=== PATIENT | female | born 1995 | race African-American/Black ===

== ENCOUNTER 2017-05-28 22:38 | Emergency (ER) | payer SELFPAY ==
[2017-05-29 00:42] VITALS: BP 123/82
== END 2017-05-29 01:18 | disposition left against medical advice (07) ==
LOC: ED 22:38
DX: H57.11 Ocular pain, right eye (principal); Z53.21 Procedure and treatment not carried out due to patient leaving prior to being seen by health care provider

== ENCOUNTER 2017-09-19 10:27 | Emergency (ER) | payer BC ==
[2017-09-19] MEDS ORDERED: NS 0.9% 1000 ML* 1,000 ML IV ONE (10:35)
--- NOTE | 2017-09-19 10:59 | RAD ---
INDICATION: 22-year-old with neurologic change. Code solorzano. COMPARISON: CT brain June 09, 2014 TECHNIQUE: Noncontrast axial source images were acquired from the skull base to the vertex. FINDINGS: Ventricles/sulci: The ventricles and cisterns are normal in size and configuration for age. Brain parenchyma: There is no focal parenchymal finding, evidence of intracranial mass, or intracranial mass effect. Intracranial hemorrhage:None. Extra-axial spaces: There are no abnormal extra axial fluid collections or evidence of extra-axial mass. Calvarium: There is no calvarial fracture or other calvarial abnormality. Scalp: There is no evidence of scalp or extracalvarial soft tissue abnormality. Paranasal sinuses/mastoid: The paranasal sinuses and mastoid air cells are clear. Other: None. IMPRESSION: NEGATIVE EXAMINATION Findings called to ED at 1054 hours
[2017-09-19 11:10] LABS: ABS Basophils 0.1 10^3/ul (0-0.2); ABS Eosinophils 0.1 10^3/ul (0-0.6); ABS Lymphocytes 1.9 10^3/ul (1.0-4.8); ABS Monocytes 0.4 10^3/ul (0-0.8); ABS Neutrophils 5.6 10^3/ul (1.5-7.7); ABS Nucleated RBC 0 10^3/ul; Eosinophil % 1.4 % (0-6); Hematocrit 40 % (35-47); Hemoglobin 13.3 g/dl (12.0-16.0); Lymphocyte % 23.8 % (25-47); Mean Corpuscular HGB Conc 34 g/dl (31-36); Mean Corpuscular Hemoglobin 29 pg (27-31); Mean Corpuscular Volume 87 fL (80-97); Mean Platelet Volume 8 um3 (7.4-10.4); Nucleated Red Blood Cells % 0.1; Platelet Count 322 10^3/ul (150-450); Red Blood Count 4.55 10^6/ul (4.0-5.4); Red Cell Distribution Width 13 % (10.5-15); White Blood Count 8.1 10^3/ul (3.5-10.8)
[2017-09-19] MEDS ORDERED: Metoclopramide IV* 5 MG/ML 2 ML VIAL IV ONE (11:14)
[2017-09-19] MEDS ORDERED: diPHENhydraMINE IV* 50 MG/ML 1 ml VIAL (BENADRYL) IV ONE (11:14)
[2017-09-19] MEDS ORDERED: Ketorolac INJ* 30 MG/ML 1 ML VIAL IV ONE (11:14)
[2017-09-19 11:27] LABS: Urine Appearance Clear; Urine Blood Negative (Negative); Urine Color Yellow; Urine Ketones Negative (Negative); Urine Protein Negative (Negative); Urine Specific Gravity 1.008 (1.010-1.030); Urine Urobilinogen Negative (Negative)
[2017-09-19 11:33] LABS: INR 0.98 (0.77-1.02)
[2017-09-19 11:40] LABS: EGFR Non-African American 102.8 (>60)
--- NOTE | 2017-09-19 11:48 | RAD ---
INDICATION: Neurologic change. Code solorzano. COMPARISON: None TECHNIQUE: An AP portable view obtained at 1120 hours is submitted. FINDINGS: Bones/Soft Tissues: There are no acute bony findings. Cardiomediastinal: The cardiomediastinal silhouette is normal. Lungs: There are no infiltrates. Pleura: There are no pleural effusions. Other: The patient's bra was not removed. There is a linear density projecting over the right axilla. This may be related to the bra. There are nipple rings. There are overlying chest leads IMPRESSION: LUNGS CLEAR. METALLIC DENSITY SOFT TISSUE OPACITIES DESCRIBED
--- NOTE | 2017-09-19 13:11 | RAD ---
HISTORY: Weakness COMPARISONS: Head CT dated September 19, 2017 TECHNIQUE: The following sequences were obtained of the head: Sagittal T1-weighted images, axial T2-weighted images, axial FLAIR images, axial susceptibility weighted images, axial T1-weighted images. Additionally, axial diffusion-weighted images were obtained with calculated apparent diffusion coefficients. FINDINGS: HEMORRHAGE/INFARCT: There is no hemorrhage or acute infarct. MASSES/SHIFT: There is no mass or shift. EXTRA-AXIAL SPACES/MENINGES: There are no extra-axial fluid collections. SULCI AND VENTRICLES: The sulci and ventricles are normal in size and position for the patient's stated age. CEREBRUM: There are no focal parenchymal abnormalities. BRAINSTEM: There are no focal parenchymal abnormalities. CEREBELLUM: There are no focal parenchymal abnormalities. The cerebellar tonsils are normal in size and position. SELLA: The sella is normal. PINEAL: The pineal region is clear. CP ANGLE/TEMPORAL BONES: The labyrinthine structures are grossly normal. VESSELS: Normal flow-voids are noted within the visualized vertebral vasculature. DIFFUSION ABNORMALITIES: There are no diffusion abnormalities. PARANASAL SINUSES/MASTOIDS: The paranasal sinuses are clear. ORBITS: The orbits are unremarkable. BONES AND SOFT TISSUE: No bone or soft tissue abnormalities are noted. OTHER: None IMPRESSION: NORMAL BRAIN
[2017-09-19 14:21] VITALS: BP 112/74
--- NOTE | 2017-09-19 19:09 | CONS ---
CONSULTATION REPORT: DATE OF CONSULT: 09/19/17 REQUESTING PHYSICIAN: Dr. Haddad. REASON FOR CONSULT: Reji Lira. HISTORY OF PRESENT ILLNESS: Molly Blank is a 22-year-old woman with no significant past medical history, who presented to the emergency department just after 10 a.m. this morning with right facial and arm numbness, garbled speech, and some right arm weakness as well. She reports that she felt normal when she woke up this morning, but shortly after she arrived at work, just before 9 a.m., she began to notice some right facial numbness and tingling. This then involved her right arm and she noticed that her speech was not making sense. 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 EMS reported that she had reported to them right facial numbness and tingling and similar symptoms in her arm, but no clear weakness aside from some weak fiber picker on the right-hand side. I should also note that prior to the onset of her sensory symptoms, she reports that just prior to 9 o'clock, she had a change off to the right side of her vision where she describes seeing a bright white light, which partially obscured her vision off to the right-hand side and made things blurry. She had similar symptoms about 2 years ago with the same sensory symptoms on the right-hand side and blurry vision off to the right. She also reports a similar episode about a year prior to that. With one of these episodes, she did develop a headache. She otherwise denies a significant history of headaches , though says she does get headaches "once in a blue zeng." She denies any significant light or sound sensitivity or nausea or vomiting with those headaches. Her mother also gets rare migraine headaches, but there is no strong family history of frequent migraines. Upon my evaluation of the patient , after her CT scan, she was developing a left frontal headache, which she rated a 7/10. Her sensory symptoms and her visual symptoms were resolved. PAST MEDICAL HISTORY: Occasional headaches as described above. PAST SURGICAL HISTORY: None. MEDICATIONS: Oral contraceptive, which she has been taking for about 1 month. She does not know the name, but it is likely a combination estrogen and progesterone pill as she states she gets her period only once every 3 months now. She was previously treated with Depo shots. ALLERGIES: No known drug allergies. FAMILY HISTORY: Rare migraine headaches in her mother as described above. Her uncle who was also present in the room says he has been getting some sharp pains in his head, which he questions to be migraine as well. SOCIAL HISTORY: She has a 3-year-old son. She works as a blood bank laboratory technician. She drinks alcohol socially/occasionally. She denies tobacco use or drug use. REVIEW OF SYSTEMS: Aside from the HPI, a 15-point review of systems was negative. Specifically, she denied any recent stressors or significant changes in her life, which may have provoked this episode. PHYSICAL EXAM: Vital Signs: Temperature 97.9, blood pressure 137/91, heart rate 100, oxygen saturation 99% on room air. On general examination, she is a pleasant, well-developed woman, in no acute distress. Her heart is in regular rate and rhythm with no murmurs, rubs, or gallops. Lungs are clear to auscultation bilaterally. There are no carotid bruits. Her skin is intact. There is no joint swelling or erythema. There is no lower extremity edema. On neurologic examination, she is fully awake, alert, and oriented. She was able to read through the stroke cards without difficulty. On cranial nerve exam, pupils are equal, round, and reactive from 4 to 2 mm bilaterally. Versions are full without nystagmus. Mejias are full to confrontation. Facial sensation and musculature was full and symmetric to both light touch and pinprick. Hearing is intact to finger rub. The palate elevates symmetrically and tongue is midline. Shoulder shrug is full and symmetric. On motor examination, there is normal bulk and tone in the upper and lower extremities. Strength is full proximally and distally with no pronator drift. On sensory testing, sensation was diminished to pinprick in the right arm to approximately 80% of that of the left arm. Otherwise, sensation was intact. Reflexes were 2+ throughout with downgoing toes. [id number] was intact without ataxia. Her gait was narrow based and stable. DIAGNOSTIC STUDIES/LAB DATA: CBC and CMP were unremarkable. Urinalysis showed no evidence of infection. Her brain CT was personally reviewed and showed no evidence of any intracranial abnormality. IMPRESSION AND PLAN: Molly Blank is a 22-year-old woman with no significant past medical history aside from 2 episodes similar to that which she comes in for today. She has had the onset of blurring of her vision off to the right-hand side associated with a bright light as well as right facial and arm numbness and tingling as well as some weakness in the right arm. This was followed approximately an hour and a half later by a left-sided headache. This is most likely migraine with aura, but given the nature of her symptoms and the persistence of some sensory changes in her right upper extremity, I recommended an MRI of the brain without contrast. I spoke with Dr. Haddad about my impression and about the headache and we will treat her pain as migraine. She was educated on most likely diagnosis and the recommendation that she discontinue her oral contraceptive as the patients with migraine with aura are at a greater risk for stroke when on oral contraceptives than the general population. [facility] and was encouraged either return there to discuss alternate methods of control or go back to the [employer] [facility] up on [facility], which she saw for the of her son previously. If her MRI is normal, and her symptoms resolve, then she can be discharged from the emergency department. She was also encouraged to establish care with primary care physician as she does not currently have one. [id number]/[facility] #: [id number] LAURA
--- NOTE | 2017-09-20 12:54 | ED ---
Seferino Pride Jennifer, scribed for Braeden Haddad MD on 09/19/17 at 1054 . Neurological HPI - HPI Summary HPI Summary: The patient is a 22 year old female who was brought to the ED by ambulance when her vision became blurry on right side at 09:00 this morning. Soon after, she began to feel numbness on the right side of her face and numbness and tingling in her right arm. The patient had a similar episode two years ago at a different location but was not given a clear diagnosis of what happened. At the ED, her face is better, but her vision is still blurry and her arm is still numb and tingling. She denies any problems with walking. - History of Current Complaint Chief Complaint: EDNeurologicalDeficit Stated Complaint: POSSIBLE STROKE Time Seen by Provider: 09/19/17 10:35 Hx Obtained From: Patient Hx Last Menstrual Period: depo Onset/Duration: Sudden Onset - This morning at 09:00, Still Present Timing: Constant Onset Severity: Moderate Current Severity: Moderate Pain Intensity: 7 Character: Other: - Numbness, tingling, blurry vision Aggravating: Nothing Alleviating: Nothing Associated Signs and Symptoms: Positive: Visual Changes, Numbness - Allergy/Home Medications Allergies/Adverse Reactions: Allergies Allergy/AdvReac Type Severity Reaction Status Date / Time No Known Allergies Allergy Verified 06/27/16 17:25 Home Medications: Home Medications Levonorgestrel-Ethinyl Estradi [Camrese Lo] 1 tab PO DAILY 09/19/17 [History Confirmed 09/19/17] PMH/Surg Hx/FS Hx/Imm Hx Endocrine/Hematology History: Denies: Hx Diabetes, Hx Thyroid Disease Cardiovascular History: Denies: Hx Hypertension Respiratory History: Denies: Hx Asthma, Hx Chronic Obstructive Pulmonary Disease (COPD) GI History: Denies: Hx Ulcer Infectious Disease History: No Infectious Disease History: Denies: Hx Hepatitis, Hx Human Immunodeficiency Virus (HIV), History Other Infectious Disease, Traveled Outside the [place] in Last 30 Days - Family History Known Family History: Negative: Cardiac Disease, Hypertension, Diabetes, Blood Disorder - Social History Alcohol Use: None Substance Use Type: Reports: None Smoking Status (MU): Never Smoked Tobacco Review of Systems Positive: Blurred Vision Neurological: Other - Tingling Positive: Numbness All Other Systems Reviewed And Are Negative: Yes Physical Exam - Summary Physical Exam Summary: Appearance: The patient is well-nourished in no acute distress and in no acute pain. Skin: The skin is warm and dry and skin color reflects adequate perfusion. HEENT: ~The head is normocephalic and atraumatic. The pupils are equal and reactive. The conjunctivae are clear and without drainage. ~Nares are patent and without drainage. ~Mouth reveals moist mucous membranes and the throat is without erythema and exudate. ~The external ears are intact. The ear canals are patent and without drainage. The tympanic membranes are intact. Neck: the neck is supple with full range of motion and non-tender. There are no carotid bruits. ~There is no neck vein distension. Respiratory: Chest is non-tender. ~Lungs are clear to auscultation and breath sounds are symmetrical and equal. Cardiovascular: Heart is regular rate and rhythm. ~There is no murmur or rub auscultated. ~~There is no peripheral edema and pulses are symmetrical and equal. Abdomen: The abdomen is soft and non-tender. ~There are normal bowel sounds heard in all four quadrants and there is no organomegaly palpated. Musculoskeletal: There is no back tenderness noted. ~Extremities are non-tender with full range of motion. ~There is good capillary refill. ~There is no peripheral edema or calf tenderness elicited. Neurological: Patient is alert and oriented to person, place and time. ~The patient has symmetrical motor strength in all four extremities. ~Cranial nerves are grossly intact. Deep tendon reflexes are symmetrical and equal in all four extremities. The patient experiences subjectiveness numbness on the right side of the face and right arm. Psychiatric: The patient has an appropriate affect and does not exhibit any anxiety or depression. Triage Information Reviewed: Yes Vital Signs On Initial Exam: Initial Vitals Temp Pulse Resp BP Pulse Ox 97.9 F 100 16 137/91 99 09/19/17 10:45 09/19/17 10:45 09/19/17 10:45 09/19/17 10:45 09/19/17 10:45 Vital Signs Reviewed: Yes Diagnostics - Vital Signs Vital Signs Temp Pulse Resp BP Pulse Ox 09/19/17 10:45 97.9 F 100 16 137/91 99 - Laboratory Lab Results: Lab Results 09/19/17 09/19/17 09/19/17 Range/Units 10:59 10:59 10:59 WBC 8.1 (3.5-10.8) 10^3/ul RBC 4.55 (4.0-5.4) 10^6/ul Hgb 13.3 (12.0-16.0) g/dl Hct 40 (35-47) % MCV 87 (80-97) fL MCH 29 (27-31) pg MCHC 34 (31-36) g/dl RDW 13 (10.5-15) % Plt Count 322 (150-450) 10^3/ul MPV 8 (7.4-10.4) um3 Neut % (Auto) 68.7 (38-83) % Lymph % (Auto) 23.8 L (25-47) % Anderson % (Auto) 5.5 (1-9) % Eos % (Auto) 1.4 (0-6) % Baso % (Auto) 0.6 (0-2) % Absolute Neuts (auto) 5.6 (1.5-7.7) 10^3/ul Absolute Lymphs (auto) 1.9 (1.0-4.8) 10^3/ul Absolute Monos (auto) 0.4 (0-0.8) 10^3/ul Absolute Eos (auto) 0.1 (0-0.6) 10^3/ul Absolute Basos (auto) 0.1 (0-0.2) 10^3/ul Absolute Nucleated RBC 0 10^3/ul Nucleated RBC % 0.1 INR (Anticoag Therapy) 0.98 (0.77-1.02) APTT 27.4 (26.0-36.3) seconds Sodium 136 (133-145) mmol/L Potassium 3.9 (3.5-5.0) mmol/L Chloride 104 (101-111) mmol/L Carbon Dioxide 24 (22-32) mmol/L Anion Gap 8 (2-11) mmol/L BUN 10 (6-24) mg/dL Creatinine 0.70 (0.51-0.95) mg/dL Est GFR ( Amer) 132.2 (>60) Est GFR (Non-Af Amer) 102.8 (>60) BUN/Creatinine Ratio 14.3 (8-20) Glucose 85 (70-100) mg/dL Lactic Acid (0.5-2.0) mmol/L Calcium 10.0 (8.6-10.3) mg/dL Total Bilirubin 0.40 (0.2-1.0) mg/dL AST 18 (13-39) U/L ALT 11 (7-52) U/L Alkaline Phosphatase 54 (34-104) U/L Troponin I 0.01 (<0.04) ng/mL Total Protein 7.6 (6.4-8.9) g/dL Albumin 4.3 (3.2-5.2) g/dL Globulin 3.3 (2-4) g/dL Albumin/Globulin Ratio 1.3 (1-3) Triglycerides 58 mg/dL Cholesterol 249 mg/dL LDL Cholesterol 155 mg/dL HDL Cholesterol 82.3 mg/dL Beta HCG, Quant < 0.60 mIU/mL Urine Color Urine Appearance Urine pH (5-9) Ur Specific Milton (1.010-1.030) Urine Protein (Negative) Urine Ketones (Negative) Urine Blood (Negative) Urine Nitrate (Negative) Urine Bilirubin (Negative) Urine Urobilinogen (Negative) Ur Leukocyte Esterase (Negative) Urine Glucose (Negative) Blood Type Antibody Screen 09/19/17 09/19/17 09/19/17 Range/Units 10:59 10:59 11:11 WBC (3.5-10.8) 10^3/ul RBC (4.0-5.4) 10^6/ul Hgb (12.0-16.0) g/dl Hct (35-47) % MCV (80-97) fL MCH (27-31) pg MCHC (31-36) g/dl RDW (10.5-15) % Plt Count (150-450) 10^3/ul MPV (7.4-10.4) um3 Neut % (Auto) (38-83) % Lymph % (Auto) (25-47) % Anderson % (Auto) (1-9) % Eos % (Auto) (0-6) % Baso % (Auto) (0-2) % Absolute Neuts (auto) (1.5-7.7) 10^3/ul Absolute Lymphs (auto) (1.0-4.8) 10^3/ul Absolute Monos (auto) (0-0.8) 10^3/ul Absolute Eos (auto) (0-0.6) 10^3/ul Absolute Basos (auto) (0-0.2) 10^3/ul Absolute Nucleated RBC 10^3/ul Nucleated RBC % INR (Anticoag Therapy) (0.77-1.02) APTT (26.0-36.3) seconds Sodium (133-145) mmol/L Potassium (3.5-5.0) mmol/L Chloride (101-111) mmol/L Carbon Dioxide (22-32) mmol/L Anion Gap (2-11) mmol/L BUN (6-24) mg/dL Creatinine (0.51-0.95) mg/dL Est GFR ( Amer) (>60) Est GFR (Non-Af Amer) (>60) BUN/Creatinine Ratio (8-20) Glucose (70-100) mg/dL Lactic Acid 1.4 (0.5-2.0) mmol/L Calcium (8.6-10.3) mg/dL Total Bilirubin (0.2-1.0) mg/dL AST (13-39) U/L ALT (7-52) U/L Alkaline Phosphatase (34-104) U/L Troponin I (<0.04) ng/mL Total Protein (6.4-8.9) g/dL Albumin (3.2-5.2) g/dL Globulin (2-4) g/dL Albumin/Globulin Ratio (1-3) Triglycerides mg/dL Cholesterol mg/dL LDL Cholesterol mg/dL HDL Cholesterol mg/dL Beta HCG, Quant mIU/mL Urine Color Yellow Urine Appearance Clear Urine pH 6.0 (5-9) Ur Specific Milton 1.008 L (1.010-1.030) Urine Protein Negative (Negative) Urine Ketones Negative (Negative) Urine Blood Negative (Negative) Urine Nitrate Negative (Negative) Urine Bilirubin Negative (Negative) Urine Urobilinogen Negative (Negative) Ur Leukocyte Esterase Negative (Negative) Urine Glucose Negative (Negative) Blood Type O Positive Antibody Screen Negative Result Diagrams: 09/19/17 10:59 09/19/17 10:59 Lab Statement: Any lab studies that have been ordered have been reviewed, and results considered in the medical decision making process. - Radiology CXR Xray Interpretation: No Acute Changes - LUNGS CLEAR. METALLIC DENSITY SOFT TISSUE OPACITIES DESCRIBED. Dr. Haddad has reviewed this report. Radiology Interpretation Completed By: Radiologist - CT CT Brain CT Interpretation: No Acute Changes - Negative exam findings. Dr. Haddad has reviewed this report. CT Interpretation Completed By: Radiologist - EKG n Cardiac Rate: NL EKG Rhythm: Sinus Rhythm - [address] Segment: Normal - Additional Comments Diagnostic Additional Comments: Brain MRI taken at 11:14. Impression: NORMAL BRAIN. Dr. Haddad has reviewed this report. NIH Scale - NIH Scale Level of Consciousness: Alert/Keenly Responsive Ask Patient the Month and His/Her Age: Both Correct Ask Pt to Open/Close Eyes and [employer]/Release Non-Paretic Hand: Both Correctly Best Gaze (Only Horizontal Eye Movement): Normal Visual Field Testing: No Visual Loss Facial Paresis-Pt to Smile & Close Eyes or Grimace Symmetry: Normal/Symmetrical Motor Function - Right Arm: No Drift-Holds 10 Seconds Motor Function - Left Arm: No Drift-Holds 10 Seconds Motor Function - Right Leg: No Drift-Holds 10 Seconds Motor Function - Left Leg: No Drift-Holds 10 Seconds Limb Ataxia-Must be out of Proportion to Weakness Present: Absent Sensory (Use Pinprick to Test Arms/Legs/Trunk/Face): Pinprick Less on Affected Best Language (Describe Picture, Name Items): No Aphasia Dysarthria (Read Several Words): Normal Extinction and Inattention: No Abnormality Total Score: 1 Course/Dx - Course Course Of Treatment: Ms. Blank presented with neurological symptomatology without a MOHR. She had a vague history of a similar event without a MOHR and no history of MOHR's so a Code Balbuena was called. Subsequent to her CT, she did develop a MOHR and Dr. Chin felt that this was likely an atypical migraine. An MRI confirmed that there was no CVA and she was D/C'd in improved condition to F /U with her Dr. Chin. - Diagnoses Provider Diagnoses: Atypical migraine Discharge - Discharge Plan Condition: Stable Disposition: HOME Patient Education Materials: Migraine Headache (ED) Referrals: Bianca Chin MD [Medical Doctor] - 3 Days Additional Instructions: Follow up with Dr. Chin, neurology, in three days. Return to the emergency department for any new or worsening symptoms. The documentation as recorded by the scribe, Gentile,Donita accurately reflects the service I personally performed and the decisions made by me, Braeden Haddad MD.
== END 2017-09-19 14:21 | disposition home or self-care (01) ==
LOC: ED 10:27
DX: G43.909 Migraine, unspecified, not intractable, without status migrainosus (principal); H53.8 Other visual disturbances
CPT/HCPCS: 36415; 70450; 70551; 71045; 80053; 80061; 81003; 83605; 84484; 84702; 85025; 85610; 85730; 86850; 86900; 86901; 93005; 96374; 96375; 99283; J1200; J1885; J2765

== ENCOUNTER 2018-12-11 11:18 | Emergency (ER) | payer BC ==
[2018-12-11] MEDS ORDERED: Butalb/Acetamin/Caff TAB* 1 TAB PO ONE (11:26)
--- NOTE | 2018-12-11 11:30 | ED ---
Headache - HPI Summary HPI Summary: 23 year old F brought in by [facility] complains of headache since 10 :00 today. The patient rates the pain 7/10 in severity. Symptoms aggravated by nothing. Symptoms alleviated by nothing. Patient reports right eye blurriness. She reports right sided tongue numbness that has resolved. Patient denies fever , neck stiffness. Patient states that she gets this type of headache once a year. Patient denies alcohol, smoking. - History Of Current Complaint Stated Complaint: HEADACHE PER EMS Time Seen by Provider: 12/11/18 11:20 Hx Obtained From: Patient Hx Last Menstrual Period: depo Onset/Duration: Sudden Onset, Started hours ago - 1, Still Present Timing: Constant Aggravating Factor: Nothing Allevating Factors: Nothing Associated Signs And Symptoms: Negative - fever, neck stiffness, Other (Noted In Comments) - right eye blurriness - Allergies/Home Medications Allergies/Adverse Reactions: Allergies Allergy/AdvReac Type Severity Reaction Status Date / Time No Known Allergies Allergy Verified 12/11/18 11:26 PMH/Surg Hx/FS Hx/Imm Hx Previously Healthy: No Endocrine/Hematology History: Denies: Hx Diabetes, Hx Thyroid Disease Cardiovascular History: Denies: Hx Hypertension, Hx Pacemaker/ICD Respiratory History: Denies: Hx Asthma, Hx Chronic Obstructive Pulmonary Disease (COPD) GI History: Denies: Hx Ulcer Sensory History: Denies: Hx Hearing Aid Neurological History: Reports: Hx Headaches Psychiatric History: Denies: Hx Panic Disorder - Surgical History Surgery Procedure, Year, and Place: NONE Infectious Disease History: Denies: Hx Hepatitis, Hx Human Immunodeficiency Virus (HIV), History Other Infectious Disease - Family History Known Family History: Negative: Cardiac Disease, Hypertension, Diabetes, Blood Disorder - Social History Alcohol Use: None Hx Substance Use: No Substance Use Type: Reports: None Hx Tobacco Use: No Smoking Status (MU): Never Smoked Tobacco Review of Systems Negative: Fever Positive: Blurred Vision - right eye Neurological: Negative - neck stiffness, right sided tongue numbness All Other Systems Reviewed And Are Negative: Yes Physical Exam - Summary Physical Exam Summary: Appearance: Well appearing, no pain distress Skin: warm, dry, reflects adequate perfusion Head/face: normal Eyes: EOMI, CHINYERE ENT: normal Neck: supple, non-tender Respiratory: CTA, breath sounds present Cardiovascular: RRR, pulses symmetrical Abdomen: non-tender, soft Musculoskeletal: normal, strength/ROM intact Neuro: normal, sensory motor intact, A&Ox3 Triage Information Reviewed: Yes Vital Signs Reviewed: Yes Re-Evaluation - Re-Evaluation First Eval Re-Evaluation Time: 12:41 Change: Improved Comment: Patient reports feeling better and would like to go home Headache Course/Dx - Course Course Of Treatment: 23 year old F [place] [facility] [place] of migraine headache since 10:00 today. Patient reports right eye blurriness and denies fever, neck stiffness. Patient states that she gets this type of headache once a year. In ED course, patient was given Fiorocet after which patient reports feeling better. Patient refused IM injections, labs, scans. Patient will be discharged home with prescription for Fioricet and follow up from primary care provider in 3 days. Patient was instructed to return to ED for new or worsening symptoms. Patient understands and is agreeable to discharge plan. - Diagnoses Differential Diagnosis/HQI/PQRI: Migraine, Sinus Headache, Tension Headache Provider Diagnoses: Migraine Discharge - Sign-Out/Discharge Documenting (check all that apply): Patient Departure - Discharge Patient Received Moderate/Deep Sedation with Procedure: No - Discharge Plan Condition: Stable Disposition: HOME Prescriptions: Butalb/Acetamin/Caff TAB* [Fioricet TAB*] 1 tab PO Q6H PRN #12 tab MDD 3 PRN Reason: Pain Patient Education Materials: Migraine Headache (ED) Referrals: [facility] [[facility]] - 3 Days Additional Instructions: Arrange a primary care provider to have follow up appointment in 3 days. RETURN TO THE EMERGENCY DEPARTMENT FOR NEW OR WORSENING SYMPTOMS. - Billing Disposition and Condition Condition: STABLE Disposition: Home - Attestation Statements Document Initiated by Scarletibe: Yes Documenting Scribe: Renetta Hawk Provider For Whom Mu is Documenting (Include Credential): Maximo Montemayor MD Scribe Attestation: Renetta Pride, emmaed for Maximo Montemayor MD on 12/11/18 at 1258. Scribe Documentation Reviewed: Yes Provider Attestation: The documentation as recorded by the Renetta beckham accurately reflects the service I personally performed and the decisions made by me, Maximo Montemayor MD Status of Scribe Document: Viewed
[2018-12-11 13:07] VITALS: BP 124/84
== END 2018-12-11 13:05 | disposition home or self-care (01) ==
LOC: ED 11:18
DX: G43.909 Migraine, unspecified, not intractable, without status migrainosus (principal)
CPT/HCPCS: 99282; A9270-GY

== ENCOUNTER 2019-10-15 09:03 | Emergency (ER) | payer SELFPAY ==
--- OUTSIDE RECORDS SUMMARY | 2019-10-15 09:11 | XMS REPORT | Continuity of Care Document ---
:1995 External Reference #:[id number] Author Name Sonia Zuñiga MD (transmitted by agent of provider Dinah Nicole) Address [address], [place] [address] Care Team Providers Name Role Phone Sonia Zuñiga MD - Internal Medicine Care Team Information Poultry Trimmer Problems Description No Information Available Social History Type Date Description Comments Sex Unknown ETOH Use Rarely consumes alcohol Tobacco Use Start: Unknown Patient has never smoked Smoking Status Reviewed: 09/29/19 Patient has never smoked Exercise Type/Frequency Exercises regularly Allergies, Adverse Reactions, Alerts Description No Known Drug Allergies Medications Active Medications SIG Qnty Indications Ordering Provider Date Sumatriptan Succinate take one tablet 9tabs G43.109 Sonia Zuñiga MD 2018 by mouth at the 50mg Tablets start of the headache; may repeat the dose in 2 hours if needed Immunizations Description No Information Available Vital Signs Date Vital Result Comment 09/29/2019 8:04am Height 61 inches 5'1" Weight 145.00 lb Heart Rate 85 /min BP Systolic Sitting 118 mmHg BP Diastolic Sitting 72 mmHg BMI (Body Mass Index) 27.4 kg/m2 12/25/2018 11:18am Height 61 inches 5'1" Weight 144.00 lb Heart Rate 69 /min BP Systolic Sitting 109 mmHg BP Diastolic Sitting 76 mmHg Body Temperature 98.4 F O2 % BldC Oximetry 97 % BMI (Body Mass Index) 27.2 kg/m2 Results Description No Information Available Procedures Description No Information Available Medical Devices Description No Information Available Encounters Description No Information Available Assessments Date Code Description Provider 09/29/2019 K59.00 Constipation, unspecified Sonia Zuñiga MD 09/29/2019 N92.6 Irregular menstruation, unspecified Sonia Zuñiga MD Plan of Treatment Future Appointment(s):12/08/2019 1:20 pm - Sonia Zuñiga MD at [facility] Internal Medicine - [facility]/06/2020 - Sonia Zuñiga MDK59.00 Constipation, unspecifiedComments:Colace 100mg twice a day for a week or till you have a good BMAfter that continue to take it dailyFollow up:F/U 2-3 months for physical Call in 4 weeks if not [id number] Irregular menstruation, unspecified Functional Status Description No Information Available Mental Status Description No Information Available Referrals Description No Information Available
[2019-10-15 09:15] VITALS: BP 116/74
--- NOTE | 2019-10-15 09:28 | UC ---
UC General HPI - HPI Summary HPI Summary: Patient states last night she was having shakes and freezing/chills and subjective fever. She has a runny nose. +bodyaches - hurts all over. She went in to work today and was sent home. No N/V/D. Has issues with constipation - started stool softener but last BM was about 2 weeks ago. Meds: Reviewed - History of Current Complaint Chief Complaint: UCRespiratory Stated Complaint: FLU LIKE SYMPTOMS Time Seen by Provider: 10/15/19 09:09 Hx Last Menstrual Period: 09/24/19 Pain Intensity: 5 - Allergy/Home Medications Allergies/Adverse Reactions: Allergies Allergy/AdvReac Type Severity Reaction Status Date / Time No Known Allergies Allergy Verified 10/15/19 09:15 Home Medications: Home Medications NK [No Home Medications Reported] 10/15/19 [History Confirmed 10/15/19] PMH/Surg Hx/FS Hx/Imm Hx Previously Healthy: Yes - Surgical History Surgical History: Yes Surgery Procedure, Year, and Place: NONE - Family History Known Family History: Negative: Cardiac Disease, Hypertension, Diabetes, Blood Disorder - Social History Alcohol Use: Occasionally Substance Use Type: None Smoking Status (MU): Never Smoked Tobacco - Immunization History Most Recent Influenza Vaccination: 07/02/13 Most Recent Tetanus Shot: needs Most Recent Pneumonia Vaccination: na Review of Systems All Other Systems Reviewed And Are Negative: Yes Constitutional: Positive: Fever, Chills ENT: Positive: Nasal Discharge Physical Exam Triage Information Reviewed: Yes Appearance: Well-Appearing Vital Signs: Initial Vital Signs Temp 100.5 F 10/15/19 09:11 Pulse 93 10/15/19 09:11 Resp 16 10/15/19 09:11 BP 116/74 10/15/19 09:11 Pulse Ox 100 10/15/19 09:11 Eyes: Positive: Conjunctiva Clear ENT: Positive: Pharyngeal erythema, Nasal drainage, TMs normal Neck: Positive: Supple, Nontender Respiratory: Positive: Lungs clear, Normal breath sounds Cardiovascular: Positive: RRR, No Murmur Abdomen Description: Positive: Nontender, Bruit Bowel Sounds: Positive: Present Course/Dx - Course Course Of Treatment: This is a 24 yr old with fever/chills and congestion. Along with constipation Flu: negative Nontoxic appearing Plan Your flu test was negative Recommend rest, fluids Tylenol and/or ibuprofen as needed for pain/fever - take as directed Recommend miralax 1 cap 2x/day and then cut back once having regular bowel movements to daily If symptoms persist or worsen, recommend follow up with PCP or return to urgent care - Diagnoses Provider Diagnosis: Viral syndrome, Constipation Discharge ED - Sign-Out/Discharge Documenting (check all that apply): Patient Departure All imaging exams completed and their final reports reviewed: No Studies - Discharge Plan Condition: Fair Disposition: HOME Patient Education Materials: Viral Syndrome (ED), Constipation (DC) Forms: *Work Release Referrals: Sonia Zuñiga MD [Primary Care Provider] - Additional Instructions: Your flu test was negative Recommend rest, fluids Tylenol and/or ibuprofen as needed for pain/fever - take as directed Recommend miralax 1 cap 2x/day and then cut back once having regular bowel movements to daily If symptoms persist or worsen, recommend follow up with PCP or return to urgent care - Billing Disposition and Condition Condition: FAIR Disposition: Home
[2019-10-15 09:34] LABS: Influenza A Molecular Negative (Negative); Influenza B Molecular Negative (Negative)
== END 2019-10-15 09:44 | disposition home or self-care (01) ==
LOC: UCEAST 09:03
DX: B34.9 Viral infection, unspecified (principal); K59.00 Constipation, unspecified; R68.83 Chills (without fever); R09.89 Other specified symptoms and signs involving the circulatory and respiratory systems
CPT/HCPCS: 99212; G0463